=== PATIENT | male | born 1950 | race Caucasian/White ===

== ENCOUNTER → 2017-12-05 | Outpatient (CLI) | payer MEDICARE, OTHER ==
[~2017-12-05] MED LIST: AMLODIPINE BESY10 MG PO; ARIXTRA; ASPIRIN325; BENTYL20 MG PO; COLACE100 MG; HYDROCODONE-AP1 EA15 PO; LISINOPRIL-HCT1 EAC2 PO; LOVASTAT20 PO; OXYIR5 MG; PERCOCET 5-3251 EACH; VITAMINC500 PO; XALATAN2.5 ML OPHTHALMIC
== END ==
LOC: M.CT 07:30
DX: R07.9 Chest pain, unspecified (principal); R07.81 Pleurodynia